=== PATIENT | female | born 1960 | race Caucasian/White ===

== ENCOUNTER 2024-06-20 18:59 | Inpatient (IN) | payer MEDICARE, OTHER ==
[~2024-06-20] VITALS: Ht 152.4 cm; Wt 53.1 kg
[~2024-06-20 18:59] MED LIST: BACL10TA PO; DICL100G14 TP; GABA-534 PO; LEVE500T9 PO; OXYC30TA86 PO; PHEN100C4 PO; TAMS0.4C34 PO; TRAM50TA2 PO; [UNRECOGNIZED DRUG - CODE] PO
[2024-06-20 22:01] LABS: CALCIUM, SERUM 8.9 mg/dL (8.5-10.1); CARBON DIOXIDE 33 mmol/L (21-32); CHLORIDE 104 mmol/L (98-107); CREATININE 0.6 mg/dL (0.6-1.3); GLUCOSE 86 mg/dL (74-106); POTASSIUM 4.5 mmol/L (3.5-5.1); SODIUM SERUM 140 mmol/L (136-145); UREA NITROGEN, BLOOD 24 mg/dL (7-18)
[2024-06-20 22:04] LABS: BASOPHILS % (AUTO) 0.7 % (0.0-2.0); EOSINOPHILS # (AUTO) 0.1 K/uL (0.0-0.7); EOSINOPHILS % (AUTO) 3.6 % (0.0-6.0); HEMATOCRIT 37 % (33-45); HEMOGLOBIN 12.3 g/dL (11.5-14.8); LYMPHOCYTES # (AUTO) 1.7 K/uL (0.8-4.8); LYMPHOCYTES % (AUTO) 45.1 % (20.0-44.0); MEAN CORPUSCULAR HEMOGLOBIN 32 PG (26.0-33.0); MEAN CORPUSCULAR HGB CONC 33 g/dl (31.0-36.0); MEAN CORPUSCULAR VOLUME 96 fL (82-100); MONOCYTES # (AUTO) 0.6 K/uL (0.1-1.30); MONOCYTES % (AUTO) 14.8 % (2.0-12.0); NEUTROPHILS # (AUTO) 1.4 K/uL (1.8-8.9); NEUTROPHILS % (AUTO) 35.8 % (43.0-81.0); PLATELET COUNT (AUTO) 258 K/uL (150-450); RED CELL DISTRIBUTION WIDTH 13.1 % (11.5-15.0); WHITE BLOOD COUNT (AUTO) 3.8 K/uL (4.3-11.0)
[2024-06-20 22:09] LABS: APPEARANCE,URINE Clear (CLEAR); BILIRUBIN,URINE Negative (NEGATIVE); BLOOD, URINE Negative Ery/uL (NEGATIVE); COLOR,URINE YELLOW (YELLOW); KETONES,URINE Negative (NEGATIVE); LEUKOCYTE ESTERASE ,URINE Negative (NEGATIVE); NITRITE, URINE Negative (NEGATIVE); PROTEIN,URINE Negative (NEGATIVE); UGLUCOSE Negative (NEGATIVE); UROBILINOGEN,URINE 0.2 EU/dL (0.2)
[2024-06-20 22:10] LABS: ALANINE AMINOTRANSFERASE 29 U/L (12-78); ALBUMIN 3.3 g/dL (3.4-5.0); ALCOHOL, BLOOD < 3 mg/dL (0-10); ALKALINE PHOSPHATASE 119 U/L (46-116); ASPARTATE AMINOTRANSFERASE 25 U/L (15-37); SALICYLATE 2.9 mg/dL (2.8-20.0); TOTAL PROTEIN, SERUM 6.7 g/dL (6.4-8.2)
[2024-06-20 22:23] LABS: AMPHETAMINE, URINE NEGATIVE (NEGATIVE); BARBITURATE, URINE NEGATIVE (NEGATIVE); BENZODIAZEPINE, URINE NEGATIVE (NEGATIVE); CANNABINOID, URINE NEGATIVE (NEGATIVE); COCCAINE, URINE NEGATIVE (NEGATIVE); OPIATE, URINE NEGATIVE (NEGATIVE); PHENCYCLIDINE SCREEN,URINE NEGATIVE (NEGATIVE)
[2024-06-20 22:52] LABS: ACETAMINOPHEN <10 ug/ml (10-30)
[2024-06-20 23:12] LABS: BILIRUBIN,TOTAL 0.1 mg/dL (0.2-1.0)
[2024-06-21] MEDS ORDERED: ASPI-1420 PO (02:27)
[2024-06-21] MEDS ORDERED: PROP60CA2 PO (02:27)
[2024-06-21] MEDS ORDERED: FURO-145 PO (02:27)
[2024-06-21] MEDS ORDERED: CLON2TAB11 PO (02:27)
[2024-06-21] MEDS ORDERED: PARO20TA7 PO (02:27)
[2024-06-21] MEDS ORDERED: PANT20TA2 PO (02:27)
[2024-06-21] MEDS ORDERED: ACET325T53 PO (02:27)
[2024-06-21] MEDS ORDERED: HYDR-3976 PO ×2 (02:27)
[2024-06-21] MEDS ORDERED: METH-647 PO (02:27)
[2024-06-21] MEDS ORDERED: ALBU8.5H8 INH (02:27)
[2024-06-21] MEDS ORDERED: IBUP-76 PO (02:27)
[2024-06-21] MEDS ORDERED: MELA3TAB41 PO (02:27)
[2024-06-21] MEDS ORDERED: BREO ELLIPTA 200-25 INH (02:27)
[2024-06-21] MEDS ORDERED: ATOR40TA PO (02:27)
[2024-06-21] MEDS ORDERED: RISP0.5T5 PO (02:27)
[2024-06-21] MEDS ORDERED: OXCA300T15 PO (02:27)
[2024-06-21] MEDS ORDERED: ALBU2.5V38 IH (02:27)
[2024-06-21] MEDS ORDERED: BUSP30TA2 PO (02:27)
[2024-06-21] MEDS: BLOOD SUGAR DIAGNOSTIC 1 EACH STRIP IN ONE (03:24)
[2024-06-21] MEDS ORDERED: MAGNESIUM HYDROXIDE 30 ML UDC PO PRN (03:30)
[2024-06-21] MEDS ORDERED: ACETAMINOPHEN 325 MG TABLET PO PRN ×2 (03:30→10:43)
[2024-06-21] MEDS ORDERED: MAG HYDROX/AL HYDROX/SIMETH 30 ML UDC PO PRN (03:30)
[2024-06-21 04:22] VITALS: BP 131/72; TEMP 97.8; O2SAT 99
[2024-06-21] MEDS ORDERED: PAROXETINE HCL 20 MG TABLET PO SCH (09:00)
[2024-06-21] MEDS ORDERED: ACETAMINOPHEN 325 MG TABLET PO SCH (09:00)
[2024-06-21] MEDS ORDERED: HYDROCODONE/APAP 7.5/325MG 1 EACH TABLET PO PRN ×2 (09:00→11:00)
[2024-06-21 09:30] VITALS: BP 134/59; TEMP 98.6; O2SAT 97
[2024-06-21] MEDS: ASPIRIN EC 81 MG TABLET.DR PO SCH (09:40)
[2024-06-21] MEDS: ATORVASTATIN 40 MG TABLET PO SCH (09:40)
[2024-06-21] MEDS: FUROSEMIDE 20 MG TABLET PO SCH (09:40)
[2024-06-21] MEDS: GABAPENTIN 300 MG CAPSULE PO SCH (09:40)
[2024-06-21] MEDS: METHOCARBAMOL (500MG) 500 MG TABLET PO PRN (09:45)
[2024-06-21] MEDS ORDERED: PROPRANOLOL LA 60 MG CAP.SA.24H PO SCH (10:00)
[2024-06-21] MEDS ORDERED: ALBUTEROL FS 2.5 MG/3 ML VIAL.NEB NEB PRN (10:00)
[2024-06-21] MEDS: HYDROCODONE/APAP 10/325MG TABLET PO PRN (10:46)
[2024-06-21] MEDS: PANTOPRAZOLE 40 MG TABLET.DR PO SCH (12:24)
[2024-06-21] MEDS: clonazePAM 0.5 MG TABLET PO SCH (12:24)
[2024-06-21] MEDS: PROPRANOLOL HCL 10 MG TABLET PO SCH (12:24)
[2024-06-21] MEDS: OXCARBAZEPINE 150 MG TABLET PO SCH (12:25)
[2024-06-21] MEDS: risperiDONE 1 MG TABLET PO SCH (12:25)
[2024-06-21] MEDS: DIVALPROEX SODIUM 125 MG TABLET.DR PO SCH (13:45)
[2024-06-21] MEDS: ALBUTEROL FS 2.5 MG/3 ML VIAL.NEB NEB SCH (14:20)
[2024-06-21 16:00] VITALS: BP 100/54; TEMP 98.6; O2SAT 96
[2024-06-21 16:23] LABS: ALBUMIN 3.4 g/dL (3.4-5.0); BILIRUBIN,TOTAL 0.3 mg/dL (0.2-1.0); CALCIUM, SERUM 9.2 mg/dL (8.5-10.1); CREATININE 0.7 mg/dL (0.6-1.3); POTASSIUM 4.1 mmol/L (3.5-5.1); TOTAL PROTEIN, SERUM 6.7 g/dL (6.4-8.2)
[2024-06-21 20:00] VITALS: BP 89/60; TEMP 98.4; O2SAT 99
[2024-06-22] MEDS: BUDESONIDE RESPULE INH 0.5 MG/2 ML AMPUL.NEB NEB SCH (07:05)
[2024-06-22 08:00] VITALS: BP 115/65; TEMP 98.4; O2SAT 99
[2024-06-22] MEDS: NICOTINE PATCH (21MG) 21 MG PATCH.TD24 TD SCH (08:11)
[2024-06-22] MEDS: LEVOTHYROXINE SODIUM 100 MCG TABLET PO SCH (08:11)
[2024-06-22] MEDS: PAROXETINE HCL 20 MG TABLET PO SCH (08:14)
[2024-06-22] MEDS: CLOTRIMAZOLE/BETAMETASONE DIPROPIONATE 15 GM TUBE TP SCH (13:26)
[2024-06-22 16:00] VITALS: BP 108/69; TEMP 97.3; O2SAT 97
[2024-06-22 21:00] VITALS: BP 113/67; TEMP 98; O2SAT 98
[2024-06-23 08:00] VITALS: BP 123/74; TEMP 97.8; O2SAT 97
[2024-06-23 16:00] VITALS: BP 122/70; TEMP 97.8; O2SAT 98
[2024-06-23 20:00] VITALS: BP 108/62; TEMP 97.9; O2SAT 100
[2024-06-23] MEDS: risperiDONE 1 MG TABLET PO SCH (20:09)
[2024-06-23] MEDS ORDERED: risperiDONE 1 MG TABLET PO SCH (21:00)
[2024-06-24 08:00] VITALS: BP 124/52; TEMP 97.9; O2SAT 97
[2024-06-24 16:00] VITALS: BP 116/65; TEMP 97.9; O2SAT 98
[2024-06-24 20:34] VITALS: BP 115/67; TEMP 98; O2SAT 99
[2024-06-25] VITALS (7 sets, daily range): BP systolic 100–124; BP diastolic 56–67; TEMP 97.5–98; O2SAT 96–99
[2024-06-25] MEDS: ZOLPIDEM TARTRATE 5 MG TABLET PO PRN (23:04)
[2024-06-26 08:00] VITALS: BP 114/69; TEMP 97.7; O2SAT 98
[2024-06-26] MEDS: clonazePAM 0.5 MG TABLET PO SCH (13:09)
[2024-06-26 13:32] LABS: ALBUMIN 3.5 g/dL (3.4-5.0); BILIRUBIN,TOTAL 0.1 mg/dL (0.2-1.0); CALCIUM, SERUM 8.8 mg/dL (8.5-10.1); CREATININE 0.6 mg/dL (0.6-1.3); POTASSIUM 4.3 mmol/L (3.5-5.1); TOTAL PROTEIN, SERUM 7.1 g/dL (6.4-8.2)
[2024-06-26 16:00] VITALS: BP 110/61; TEMP 97.9; O2SAT 96
[2024-06-26 16:08] VITALS: BP 110/61
[2024-06-26] MEDS ORDERED: PROP20TA7 PO (20:16)
[2024-06-26] MEDS ORDERED: ALBU2.5V11 NEB (20:16)
[2024-06-26] MEDS ORDERED: CLON1TAB12 PO (20:16)
[2024-06-26] MEDS ORDERED: MAGN400O6 PO (20:16)
[2024-06-26] MEDS ORDERED: DIVA125T32 PO (20:16)
[2024-06-26] MEDS ORDERED: CLOT15CR27 TP (20:16)
[2024-06-26] MEDS ORDERED: MAG30ORA PO (20:16)
[2024-06-26] MEDS ORDERED: BUDE0.5A4 NEB (20:16)
[2024-06-26] MEDS ORDERED: PARO10TA4 PO (20:16)
[2024-06-26] MEDS ORDERED: HYDR-3980 PO (20:16)
[2024-06-26] MEDS ORDERED: PANT40TA49 PO (20:16)
[2024-06-26] MEDS ORDERED: risperiDONE 1 MG TABLET PO SCH (21:00)
[2024-06-27] MEDS ORDERED: risperiDONE 1 MG TABLET PO SCH ×2 (21:00)
[2024-06-27] MEDS ORDERED: clonazePAM 1 MG TABLET PO SCH (21:00)
[2024-06-27] MEDS ORDERED: clonazePAM 0.5 MG TABLET PO SCH (21:00)
== END 2024-06-26 17:51 | DRG 885 ==
LOC: ER 19:10 → GPS 06-21 02:02
PROVIDERS: ADMIT Psychiatry & Neurology Psychiatry; ATTEND Internal Medicine
DX: F39 Unspecified mood [affective] disorder (principal); F19.20 Other psychoactive substance dependence, uncomplicated; G93.1 Anoxic brain damage, not elsewhere classified; F14.20 Cocaine dependence, uncomplicated; E87.1 Hypo-osmolality and hyponatremia; F29 Unspecified psychosis not due to a substance or known physiological condition; J44.9 Chronic obstructive pulmonary disease, unspecified; F25.9 Schizoaffective disorder, unspecified; F31.9 Bipolar disorder, unspecified; G31.84 Mild cognitive impairment of uncertain or unknown etiology; I87.2 Venous insufficiency (chronic) (peripheral); Z62.810 Personal history of physical and sexual abuse in childhood; R62.7 Adult failure to thrive; Z88.5 Allergy status to narcotic agent; Z88.8 Allergy status to other drugs, medicaments and biological substances; E03.9 Hypothyroidism, unspecified; Z90.710 Acquired absence of both cervix and uterus; Z79.899 Other long term (current) drug therapy; Z91.199 Patient's noncompliance with other medical treatment and regimen due to unspecified reason; Z91.411 Personal history of adult psychological abuse; Z91.410 Personal history of adult physical and sexual abuse; F17.200 Nicotine dependence, unspecified, uncomplicated; B35.4 Tinea corporis; Z96.649 Presence of unspecified artificial hip joint; G89.4 Chronic pain syndrome; M48.00 Spinal stenosis, site unspecified; Z79.890 Hormone replacement therapy
CPT/HCPCS: 36415; 80048-TC; 80053-TC; 80061-TC; 80076-TC; 82962-TC; 85025-TC; 87081-TC; 93970-TC; 94760-TC; 94799-TC; 97112-TC; 97116-TC; 97530-TC; G0480

== ENCOUNTER 2024-06-26 18:05 | Inpatient (IN) | payer MEDICARE, OTHER ==
[~2024-06-26] VITALS: Ht 152.4 cm; Wt 49.9 kg
[~2024-06-26 18:05] MED LIST changes: +ACET325T53 PO; +ALBU2.5V38 IH; +ALBU8.5H8 INH; +ASPI-1420 PO; +ATOR40TA PO; -BACL10TA PO; +BREO ELLIPTA 200-25 INH; +BUSP30TA2 PO; +CLON2TAB11 PO; -DICL100G14 TP; +FURO-145 PO; +HYDR-3976 PO; +IBUP-76 PO; -LEVE500T9 PO; +MELA3TAB41 PO; +METH-647 PO; +OXCA300T15 PO; -OXYC30TA86 PO; +PANT20TA2 PO; +PARO20TA7 PO; -PHEN100C4 PO; +PROP60CA2 PO; +RISP0.5T5 PO; -TAMS0.4C34 PO; -TRAM50TA2 PO
[2024-06-26] MEDS ORDERED: CLON1TAB12 PO (20:16)
[2024-06-26] MEDS ORDERED: BUDE0.5A4 NEB (20:16)
[2024-06-26] MEDS ORDERED: CLOT15CR27 TP (20:16)
[2024-06-26] MEDS ORDERED: DIVA125T32 PO (20:16)
[2024-06-26] MEDS ORDERED: PROP20TA7 PO (20:16)
[2024-06-26] MEDS ORDERED: MAGN400O6 PO (20:16)
[2024-06-26] MEDS ORDERED: ALBU2.5V11 NEB (20:16)
[2024-06-26] MEDS ORDERED: PANT40TA49 PO (20:16)
[2024-06-26] MEDS ORDERED: PARO10TA4 PO (20:16)
[2024-06-26] MEDS ORDERED: MAG30ORA PO (20:16)
[2024-06-26] MEDS ORDERED: HYDR-3980 PO (20:16)
[2024-06-26] MEDS ORDERED: ONDANSETRON HCL/PF 4 MG/2 ML VIAL IVP PRN (20:30)
[2024-06-26] MEDS: ENOXAPARIN SODIUM 40 MG/0.4 ML DISP.SYRIN SQ SCH (21:35)
[2024-06-27] MEDS: IV NS 0.9% 1,000 ML IV PRN (04:34)
[2024-06-27] MEDS: ACETAMINOPHEN 325 MG TABLET PO PRN (06:26)
[2024-06-27 07:01] LABS: BASOPHILS % (AUTO) 0.4 % (0.0-2.0); EOSINOPHILS # (AUTO) 0.1 K/uL (0.0-0.7); EOSINOPHILS % (AUTO) 2.6 % (0.0-6.0); HEMATOCRIT 39 % (33-45); HEMOGLOBIN 13.2 g/dL (11.5-14.8); LYMPHOCYTES # (AUTO) 1.4 K/uL (0.8-4.8); LYMPHOCYTES % (AUTO) 49.9 % (20.0-44.0); MEAN CORPUSCULAR HEMOGLOBIN 31 PG (26.0-33.0); MEAN CORPUSCULAR HGB CONC 34 g/dl (31.0-36.0); MEAN CORPUSCULAR VOLUME 93 fL (82-100); MONOCYTES # (AUTO) 0.4 K/uL (0.1-1.30); MONOCYTES % (AUTO) 15.7 % (2.0-12.0); NEUTROPHILS # (AUTO) 0.9 K/uL (1.8-8.9); NEUTROPHILS % (AUTO) 31.4 % (43.0-81.0); PLATELET COUNT (AUTO) 198 K/uL (150-450); RED BLOOD CELL COUNT(AUTO) 4.21 MIL/uL (4.0-5.2); RED CELL DISTRIBUTION WIDTH 13.1 % (11.5-15.0); WHITE BLOOD COUNT (AUTO) 2.8 K/uL (4.3-11.0)
[2024-06-27 07:47] LABS: CALCIUM, SERUM 9.3 mg/dL (8.5-10.1); CREATININE 0.4 mg/dL (0.6-1.3); MAGNESIUM 1.7 mg/dL (1.8-2.4); PHOSPHORUS 4.2 mg/dL (2.5-4.9); POTASSIUM 4.2 mmol/L (3.5-5.1)
[2024-06-27] MEDS: CLOTRIMAZOLE/BETAMETASONE DIPROPIONATE 15 GM TUBE TP SCH (13:17)
[2024-06-27] MEDS: MAGNESIUM OXIDE 400 MG TABLET PO ONE (13:35)
[2024-06-27] MEDS ORDERED: ALBUTEROL FS 2.5 MG/3 ML VIAL.NEB IH PRN (16:30)
[2024-06-27] MEDS ORDERED: BUDESONIDE RESPULE INH 0.5 MG/2 ML AMPUL.NEB NEB SCH (17:00)
[2024-06-27] MEDS: PROPRANOLOL HCL 10 MG TABLET PO SCH (17:25)
[2024-06-27] MEDS: FUROSEMIDE 20 MG TABLET PO SCH (17:25)
[2024-06-27] MEDS: METHOCARBAMOL (500MG) 500 MG TABLET PO SCH (17:26)
[2024-06-27] MEDS: ALBUTEROL FS 2.5 MG/3 ML VIAL.NEB NEB SCH (19:30)
[2024-06-27] MEDS: HYDROCODONE/APAP 5/325MG TABLET PO PRN (19:55)
[2024-06-27 20:38] LABS: CREATININE 0.7 mg/dL (0.6-1.3)
[2024-06-27 21:00] VITALS: BP 95/62; TEMP 98.4; O2SAT 98
[2024-06-27] MEDS: risperiDONE 0.25 MG TABLET PO SCH (21:12)
[2024-06-27] MEDS: clonazePAM 1 MG TABLET PO SCH (21:12)
[2024-06-28 07:52] LABS: BASOPHILS % (AUTO) 0.3 % (0.0-2.0); EOSINOPHILS % (AUTO) 0.1 % (0.0-6.0); HEMATOCRIT 36 % (33-45); HEMOGLOBIN 12.2 g/dL (11.5-14.8); LYMPHOCYTES # (AUTO) 1.3 K/uL (0.8-4.8); LYMPHOCYTES % (AUTO) 27.8 % (20.0-44.0); MEAN CORPUSCULAR HEMOGLOBIN 32 PG (26.0-33.0); MEAN CORPUSCULAR HGB CONC 34 g/dl (31.0-36.0); MEAN CORPUSCULAR VOLUME 92 fL (82-100); MONOCYTES # (AUTO) 0.8 K/uL (0.1-1.30); MONOCYTES % (AUTO) 17.1 % (2.0-12.0); NEUTROPHILS # (AUTO) 2.6 K/uL (1.8-8.9); NEUTROPHILS % (AUTO) 54.7 % (43.0-81.0); PLATELET COUNT (AUTO) 247 K/uL (150-450); RED BLOOD CELL COUNT(AUTO) 3.86 MIL/uL (4.0-5.2); RED CELL DISTRIBUTION WIDTH 12.6 % (11.5-15.0); WHITE BLOOD COUNT (AUTO) 4.7 K/uL (4.3-11.0)
[2024-06-28 07:56] VITALS: O2SAT 96
[2024-06-28] MEDS: BUDESONIDE RESPULE INH 0.5 MG/2 ML AMPUL.NEB NEB SCH (07:56)
[2024-06-28] MEDS: LEVOTHYROXINE SODIUM 100 MCG TABLET PO SCH (07:56)
[2024-06-28 08:06] LABS: CALCIUM, SERUM 9.1 mg/dL (8.5-10.1); CREATININE 0.6 mg/dL (0.6-1.3); MAGNESIUM 1.8 mg/dL (1.8-2.4); PHOSPHORUS 3.3 mg/dL (2.5-4.9); POTASSIUM 3.5 mmol/L (3.5-5.1)
[2024-06-28 08:14] VITALS: O2SAT 96
[2024-06-28] MEDS: PANTOPRAZOLE 40 MG TABLET.DR PO SCH (08:27)
[2024-06-28] MEDS: ASPIRIN EC 81 MG TABLET.DR PO SCH (08:30)
[2024-06-28 09:32] LABS: BASOPHILS % (MANUAL) 0 % (0.0-2.0); EOSINOPHILS % (MANUAL) 0 % (0-4); LYMPHOCYTES % (MANUAL) 25 % (16-48); MONOCYTES % (MANUAL) 17 % (0-11.0); NEUTROPHILS % (MANUAL) 58 (42-76); PLATELET ESTIMATE ADEQUATE
[2024-06-28 15:45] LABS: CALCIUM, SERUM 9.1 mg/dL (8.5-10.1); CREATININE 0.7 mg/dL (0.6-1.3); MAGNESIUM 1.7 mg/dL (1.8-2.4); PHOSPHORUS 3.2 mg/dL (2.5-4.9); POTASSIUM 3.5 mmol/L (3.5-5.1)
[2024-06-28 16:12] LABS: THYROID STIMULATING HORMONE 0.02 uIU/mL (0.358-3.74); URIC ACID 3.6 mg/dL (2.6-7.2)
[2024-06-28] MEDS: GABAPENTIN 300 MG CAPSULE PO SCH (18:31)
[2024-06-28 19:57] VITALS: O2SAT 95
[2024-06-28 20:00] VITALS: O2SAT 95
[2024-06-28 20:06] VITALS: O2SAT 98
[2024-06-28] MEDS: clonazePAM 0.5 MG TABLET PO SCH (21:27)
[2024-06-28] MEDS: risperiDONE 0.25 MG TABLET PO SCH (21:45)
[2024-06-29] MEDS: busPIRone 5 MG TABLET PO SCH (12:26)
[2024-06-29 14:20] LABS: CALCIUM, SERUM 9.2 mg/dL (8.5-10.1); CREATININE 0.8 mg/dL (0.6-1.3); POTASSIUM 3.4 mmol/L (3.5-5.1)
[2024-06-29 19:31] VITALS: O2SAT 96
[2024-06-29 20:00] VITALS: BP 101/67; TEMP 98.2; O2SAT 94
[2024-06-29 20:30] VITALS: BP 95/62; TEMP 98; O2SAT 98
[2024-06-30 07:20] LABS: BASOPHILS % (AUTO) 0.4 % (0.0-2.0); EOSINOPHILS # (AUTO) 0.1 K/uL (0.0-0.7); EOSINOPHILS % (AUTO) 2.7 % (0.0-6.0); HEMATOCRIT 38 % (33-45); HEMOGLOBIN 12.9 g/dL (11.5-14.8); LYMPHOCYTES # (AUTO) 1.7 K/uL (0.8-4.8); LYMPHOCYTES % (AUTO) 36.2 % (20.0-44.0); MEAN CORPUSCULAR HEMOGLOBIN 32 PG (26.0-33.0); MEAN CORPUSCULAR HGB CONC 34 g/dl (31.0-36.0); MEAN CORPUSCULAR VOLUME 93 fL (82-100); MONOCYTES # (AUTO) 0.8 K/uL (0.1-1.30); MONOCYTES % (AUTO) 18.4 % (2.0-12.0); NEUTROPHILS # (AUTO) 1.9 K/uL (1.8-8.9); NEUTROPHILS % (AUTO) 42.3 % (43.0-81.0); PLATELET COUNT (AUTO) 246 K/uL (150-450); RED BLOOD CELL COUNT(AUTO) 4.07 MIL/uL (4.0-5.2); WHITE BLOOD COUNT (AUTO) 4.6 K/uL (4.3-11.0)
[2024-06-30 07:29] LABS: ALBUMIN 3.4 g/dL (3.4-5.0); BILIRUBIN,TOTAL 0.2 mg/dL (0.2-1.0); CALCIUM, SERUM 9.1 mg/dL (8.5-10.1); CREATININE 0.6 mg/dL (0.6-1.3); MAGNESIUM 2.2 mg/dL (1.8-2.4); PHOSPHORUS 4.4 mg/dL (2.5-4.9); POTASSIUM 3.4 mmol/L (3.5-5.1); TOTAL PROTEIN, SERUM 6.8 g/dL (6.4-8.2)
[2024-06-30] MEDS: POTASSIUM CHLORIDE 20 MEQ TAB.PRT.SR PO SCH (10:06)
[2024-06-30 12:42] VITALS: BP 90/60
[2024-06-30] MEDS ORDERED: RISP2TAB85 PO (15:45)
[2024-06-30] MEDS ORDERED: ONDA-97 IVP (15:45)
[2024-06-30] MEDS ORDERED: HYDR-4303 PO (15:45)
[2024-06-30] MEDS ORDERED: CLON0.252 PO (15:45)
[2024-06-30] MEDS ORDERED: BUSP5TAB3 PO (15:45)
[2024-06-30] MEDS ORDERED: ENOX40DI9 SQ (15:45)
== END 2024-06-30 15:25 | DRG 641 ==
LOC: MED 18:05
PROVIDERS: ADMIT Nurse Practitioner Acute Care; ATTEND Nurse Practitioner Acute Care
DX: E87.1 Hypo-osmolality and hyponatremia (principal); L03.116 Cellulitis of left lower limb; L03.115 Cellulitis of right lower limb; F29 Unspecified psychosis not due to a substance or known physiological condition; I87.2 Venous insufficiency (chronic) (peripheral); B35.4 Tinea corporis; E03.9 Hypothyroidism, unspecified; E86.1 Hypovolemia; F32.9 Major depressive disorder, single episode, unspecified; J44.9 Chronic obstructive pulmonary disease, unspecified; B36.8 Other specified superficial mycoses; F39 Unspecified mood [affective] disorder; F25.9 Schizoaffective disorder, unspecified; F19.10 Other psychoactive substance abuse, uncomplicated; R74.8 Abnormal levels of other serum enzymes; G62.9 Polyneuropathy, unspecified; Z98.890 Other specified postprocedural states; D72.819 Decreased white blood cell count, unspecified; R63.1 Polydipsia
CPT/HCPCS: 36415; 80048-TC; 80053-TC; 82533; 83735-TC; 84100-TC; 84443-TC; 84550-TC; 85025-TC; 94799-TC; A4223; G0378; J1650; J7030

== ENCOUNTER 2024-06-30 14:37 | Inpatient (IN) | payer MEDICARE, OTHER ==
[~2024-06-30] VITALS: Ht 152.4 cm; Wt 53.1 kg
[~2024-06-30 14:37] MED LIST changes: +ALBU2.5V11 NEB; -ALBU8.5H8 INH; -ATOR40TA PO; -BREO ELLIPTA 200-25 INH; +BUDE0.5A4 NEB; -BUSP30TA2 PO; +CLON1TAB12 PO; -CLON2TAB11 PO; +CLOT15CR27 TP; +DIVA125T32 PO; -HYDR-3976 PO; +HYDR-3980 PO; -IBUP-76 PO; +MAG30ORA PO; +MAGN400O6 PO; -MELA3TAB41 PO; -PANT20TA2 PO; +PANT40TA49 PO; +PARO10TA4 PO; -PARO20TA7 PO; +PROP20TA7 PO; -PROP60CA2 PO
[2024-06-30] MEDS ORDERED: RISP2TAB85 PO (15:45)
[2024-06-30] MEDS ORDERED: CLON0.252 PO (15:45)
[2024-06-30] MEDS ORDERED: ENOX40DI9 SQ (15:45)
[2024-06-30] MEDS ORDERED: HYDR-4303 PO (15:45)
[2024-06-30] MEDS ORDERED: BUSP5TAB3 PO (15:45)
[2024-06-30] MEDS ORDERED: ONDA-97 IVP (15:45)
[2024-06-30 15:51] VITALS: BP 110/65; TEMP 99; O2SAT 96
[2024-06-30] MEDS ORDERED: MAG HYDROX/AL HYDROX/SIMETH 30 ML UDC PO PRN (16:00)
[2024-06-30] MEDS ORDERED: MAGNESIUM HYDROXIDE 30 ML UDC PO PRN (16:00)
[2024-06-30] MEDS: BLOOD SUGAR DIAGNOSTIC 1 EACH STRIP IN ONE (17:18)
[2024-06-30] MEDS: busPIRone 5 MG TABLET PO SCH (18:39)
[2024-06-30] MEDS ORDERED: ACETAMINOPHEN 325 MG TABLET PO PRN (19:30)
[2024-06-30] MEDS ORDERED: ALBUTEROL FS 2.5 MG/3 ML VIAL.NEB IH PRN (19:30)
[2024-06-30] MEDS: GABAPENTIN 300 MG CAPSULE PO SCH (19:41)
[2024-06-30 20:00] VITALS: BP 117/59; TEMP 98.4; O2SAT 97
[2024-06-30] MEDS: risperiDONE 1 MG TABLET PO SCH (21:28)
[2024-06-30] MEDS: clonazePAM 0.5 MG TABLET PO SCH (21:28)
[2024-07-01] MEDS: ALBUTEROL FS 2.5 MG/3 ML VIAL.NEB NEB SCH (01:30)
[2024-07-01 08:00] VITALS: BP 129/84; TEMP 97.7; O2SAT 98
[2024-07-01] MEDS: LEVOTHYROXINE SODIUM 100 MCG TABLET PO SCH (08:11)
[2024-07-01] MEDS: ASPIRIN EC 81 MG TABLET.DR PO SCH (08:11)
[2024-07-01] MEDS: PANTOPRAZOLE 40 MG TABLET.DR PO SCH (08:11)
[2024-07-01] MEDS: PROPRANOLOL HCL 10 MG TABLET PO SCH ×2 (08:11→16:32)
[2024-07-01] MEDS: ENOXAPARIN SODIUM 40 MG/0.4 ML DISP.SYRIN SQ SCH (08:18)
[2024-07-01] MEDS: BUDESONIDE RESPULE INH 0.5 MG/2 ML AMPUL.NEB NEB SCH (08:40)
[2024-07-01] MEDS: CLOTRIMAZOLE 1% 15 GM TUBE TP SCH (09:15)
[2024-07-01] MEDS: METHOCARBAMOL (500MG) 500 MG TABLET PO PRN (09:15)
[2024-07-01] MEDS: clonazePAM 0.5 MG TABLET PO ONE (13:33)
[2024-07-01 16:00] VITALS: BP 115/65; TEMP 97.9; O2SAT 99
[2024-07-01 17:18] LABS: ALBUMIN 3.8 g/dL (3.4-5.0); BILIRUBIN,TOTAL 0.2 mg/dL (0.2-1.0); CALCIUM, SERUM 9.4 mg/dL (8.5-10.1); CREATININE 0.6 mg/dL (0.6-1.3); POTASSIUM 4.6 mmol/L (3.5-5.1); TOTAL PROTEIN, SERUM 7.3 g/dL (6.4-8.2)
[2024-07-01 17:34] LABS: CHOLESTEROL 143 mg/dL (<200); HDL CHOLESTEROL 89 mg/dL (40-60); LDL 53 mg/dL (0-99); TRIGLYCERIDES 54 mg/dL (30-150)
[2024-07-01 20:23] VITALS: O2SAT 97
[2024-07-01 20:38] VITALS: O2SAT 99
[2024-07-01 20:43] VITALS: BP 126/63; TEMP 97.9; O2SAT 96
[2024-07-02] MEDS: HYDROCODONE/APAP 5/325MG TABLET PO PRN (02:19)
[2024-07-02] MEDS: ACETAMINOPHEN 325 MG TABLET PO PRN (04:34)
[2024-07-02 08:00] VITALS: BP 129/79; TEMP 97.7; O2SAT 98
[2024-07-02] MEDS: NICOTINE PATCH (7MG) 7 MG PATCH.TD24 TD SCH (08:47)
[2024-07-02 16:07] VITALS: BP 108/87; TEMP 97.9; O2SAT 100
[2024-07-02 20:26] VITALS: BP 108/82; TEMP 97.9; O2SAT 98
[2024-07-03 08:00] VITALS: BP 118/85; TEMP 97.8; O2SAT 97
[2024-07-03 08:17] VITALS: BP 118/85
[2024-07-03 10:35] LABS: BILIRUBIN,TOTAL 0.1 mg/dL (0.2-1.0); CALCIUM, SERUM 8.7 mg/dL (8.5-10.1); CREATININE 0.7 mg/dL (0.6-1.3); POTASSIUM 4.4 mmol/L (3.5-5.1); TOTAL PROTEIN, SERUM 7.3 g/dL (6.4-8.2)
== END 2024-07-03 11:50 | DRG 885 ==
LOC: GPS 14:37
PROVIDERS: ADMIT Psychiatry & Neurology Psychiatry; ATTEND Nurse Practitioner Acute Care
DX: F25.9 Schizoaffective disorder, unspecified (principal); E87.1 Hypo-osmolality and hyponatremia; F31.9 Bipolar disorder, unspecified; F29 Unspecified psychosis not due to a substance or known physiological condition; G31.84 Mild cognitive impairment of uncertain or unknown etiology; F19.21 Other psychoactive substance dependence, in remission; I87.2 Venous insufficiency (chronic) (peripheral); J44.9 Chronic obstructive pulmonary disease, unspecified; K21.9 Gastro-esophageal reflux disease without esophagitis; Z62.810 Personal history of physical and sexual abuse in childhood; Z79.899 Other long term (current) drug therapy; Z91.199 Patient's noncompliance with other medical treatment and regimen due to unspecified reason; Z91.410 Personal history of adult physical and sexual abuse; Z91.411 Personal history of adult psychological abuse; Z96.649 Presence of unspecified artificial hip joint; B35.4 Tinea corporis; E03.9 Hypothyroidism, unspecified; Z88.4 Allergy status to anesthetic agent; Z88.1 Allergy status to other antibiotic agents; Z88.5 Allergy status to narcotic agent; F17.200 Nicotine dependence, unspecified, uncomplicated; G62.9 Polyneuropathy, unspecified; G89.29 Other chronic pain; F39 Unspecified mood [affective] disorder
CPT/HCPCS: 36415; 80053-TC; 80061-TC; 82962-TC; 87081-TC; J1650